=== PATIENT | male | born 1930 | race Caucasian/White ===

== ENCOUNTER 2021-09-24 12:43 | Inpatient (IN) ==
[2021-09-24] MEDS ORDERED: MOM Conc 10 ML UD.LIQ PO PRN (23:27)
[2021-09-25] MEDS: *HR* OxyCODONE/APAP 5/325 TABLET PO PRN ×3 (00:09→16:19)
[2021-09-25] MEDS: Aspirin Enteric Coated 81 MG Tablet PO SCH ×3 (00:12→22:16)
[2021-09-25] MEDS: Apixaban 2.5 MG TABLET PO SCH ×3 (00:13→23:04)
[2021-09-25] MEDS: Ranolazine 500 MG TAB.ER.12H PO SCH ×3 (00:13→22:20)
[2021-09-25] MEDS: traZODone 50 MG TABLET PO SCH ×2 (00:13→22:20)
[2021-09-25] MEDS: amLODIPine 5 MG TABLET PO SCH ×2 (00:13→22:20)
[2021-09-25 04:44] LABS: Basophils % 0.4 %; Eosinophils # 0.2 K/mcL (0.0-0.6); Eosinophils % 3.8 %; Hematocrit 22.1 % (37.5-50.1); Immature Granulocytes % 2.1 % (0-4); Lymphocytes # 0.6 K/mcL (0.6-4.6); Lymphocytes % 13.1 %; Mean Corpuscular HGB Conc 31.7 g/dL (31.6-35.5); Mean Corpuscular Volume 91.7 fL (83.0-100.0); Mean Platelet Volume 10.7 fL (9.4-12.4); Monocytes # 0.7 K/mcL (0.0-1.3); Monocytes % 14.6 %; Neutrophils # 3.1 K/mcL (1.6-8.9); Nucleated Red Blood Cells 0.6 /100 WBC (0); Platelet Count 228 K/mcL (140-400); Red Blood Count 2.41 M/mcL (4.19-5.50); Red Cell Distribution Width 17.2 % (11.5-14.5); White Blood Count 4.7 K/mcL (4.3-11.1)
[2021-09-25 04:57] LABS: BUN/Creatinine Ratio 31 (6-26); Blood Urea Nitrogen 31 mg/dL (8-23); Calcium 9.2 mg/dL (8.6-10.3); Carbon Dioxide 25 mEq/L (23-29); Chloride 109 mEq/L (98-107); Glucose 139 mg/dL (70-105); Osmolality,Calculated 299 (280-300); Sodium 140 mEq/L (136-145); eGFR For African Americans > 60 (> 60); eGFR For Non-African Americans > 60 (> 60)
[2021-09-25] MEDS: Multivit/Ca/Min/Fe/FA 1 TAB TABLET PO SCH (08:52)
[2021-09-25] MEDS: *HR* Pioglitazone 15 MG TABLET PO SCH (08:52)
[2021-09-25] MEDS: carvediloL 6.25 MG TABLET PO SCH ×2 (08:52→16:19)
[2021-09-25] MEDS: Finasteride 5 MG TABLET PO SCH (08:53)
[2021-09-25] MEDS: Ascorbic Acid 500 MG TABLET PO SCH ×2 (08:53→16:19)
[2021-09-25] MEDS ORDERED: D5% in Water 1,000 ML IVC PRN (12:03)
[2021-09-25] MEDS ORDERED: Dextrose Gel 15 GM/37.5 ML TUBE PO PRN ×2 (12:03)
[2021-09-25] MEDS ORDERED: *HR* Dextrose 50 % in Water (Syg) 50 ML SYRINGE IVP PRN (12:03)
[2021-09-25] MEDS: Insulin LISPRO 300 UNITS/3 ML VIAL SUBQ SCH ×2 (17:04→21:23)
[2021-09-25] MEDS ORDERED: 0.9 % Sodium Chloride 250 ML ONE (21:32)
[2021-09-26] MEDS: *HR* OxyCODONE/APAP 5/325 TABLET PO PRN ×2 (01:12→13:30)
[2021-09-26 06:01] LABS: Hemoglobin 8.2 g/dL (12.9-16.9)
[2021-09-26 08:05] LABS: Iron 36 mcg/dL (65-175)
[2021-09-26] MEDS: Insulin LISPRO 300 UNITS/3 ML VIAL SUBQ SCH ×4 (08:43→22:29)
[2021-09-26] MEDS: Aspirin Enteric Coated 81 MG Tablet PO SCH ×2 (08:44→22:34)
[2021-09-26] MEDS: Ascorbic Acid 500 MG TABLET PO SCH ×2 (08:44→17:56)
[2021-09-26] MEDS: Apixaban 2.5 MG TABLET PO SCH ×2 (08:44→22:34)
[2021-09-26] MEDS: Ranolazine 500 MG TAB.ER.12H PO SCH ×2 (08:44→22:35)
[2021-09-26] MEDS: carvediloL 6.25 MG TABLET PO SCH ×2 (08:44→17:55)
[2021-09-26] MEDS: Multivit/Ca/Min/Fe/FA 1 TAB TABLET PO SCH (08:45)
[2021-09-26] MEDS: Finasteride 5 MG TABLET PO SCH (08:45)
[2021-09-26] MEDS: *HR* Pioglitazone 15 MG TABLET PO SCH (08:45)
[2021-09-26 11:28] LABS: Bilirubin,Urine Negative (Negative); Blood,Urine Negative (Negative); Clarity,Urine Clear (Clear); Color,Urine Yellow (Yellow); Glucose,Urine (UA) Normal (Normal); Ketones,Urine Negative (Negative); Leukocyte Esterase,Urine Negative (Negative); Nitrite,Urine Negative (Negative); Protein,Urine Negative (Neg-Trace); Specific Gravity,Urine 1.015 (1.010-1.025); Urobilinogen,Urine Normal (Normal)
[2021-09-26] MEDS: traZODone 50 MG TABLET PO SCH (22:34)
[2021-09-26] MEDS: amLODIPine 5 MG TABLET PO SCH (22:35)
[2021-09-27] MEDS: Insulin LISPRO 300 UNITS/3 ML VIAL SUBQ SCH ×4 (08:33→20:40)
[2021-09-27] MEDS: carvediloL 6.25 MG TABLET PO SCH ×2 (08:34→17:31)
[2021-09-27] MEDS: Multivit/Ca/Min/Fe/FA 1 TAB TABLET PO SCH (08:34)
[2021-09-27] MEDS: Ascorbic Acid 500 MG TABLET PO SCH ×2 (08:34→17:31)
[2021-09-27] MEDS: Ranolazine 500 MG TAB.ER.12H PO SCH ×2 (08:34→20:39)
[2021-09-27] MEDS: Apixaban 2.5 MG TABLET PO SCH ×2 (08:34→20:39)
[2021-09-27] MEDS: Aspirin Enteric Coated 81 MG Tablet PO SCH ×2 (08:34→20:39)
[2021-09-27] MEDS: *HR* Pioglitazone 15 MG TABLET PO SCH (08:35)
[2021-09-27] MEDS: Finasteride 5 MG TABLET PO SCH (08:35)
[2021-09-27] MEDS: *HR* OxyCODONE/APAP 5/325 TABLET PO PRN ×2 (08:38→20:39)
[2021-09-27] MEDS: amLODIPine 5 MG TABLET PO SCH (20:39)
[2021-09-27] MEDS: traZODone 50 MG TABLET PO SCH (20:40)
[2021-09-28 06:08] LABS: Hematocrit 25.3 % (37.5-50.1); Hemoglobin 7.9 g/dL (12.9-16.9); Mean Corpuscular HGB Conc 31.2 g/dL (31.6-35.5); Mean Corpuscular Hemoglobin 28.7 pg (28.0-33.3); Mean Platelet Volume 10.1 fL (9.4-12.4); Platelet Count 258 K/mcL (140-400); Red Blood Count 2.75 M/mcL (4.19-5.50); Red Cell Distribution Width 17.3 % (11.5-14.5); White Blood Count 4.1 K/mcL (4.3-11.1)
[2021-09-28 06:26] LABS: Alanine Aminotransferase 13 Units/L (7-52); Albumin 2.8 g/dL (3.5-5.7); Alkaline Phosphatase 93 Units/L (34-104); Aspartate Amino Transferase 35 Units/L (13-39); BUN/Creatinine Ratio 23 (6-26); Bilirubin,Total 0.5 mg/dL (0.3-1.0); Blood Urea Nitrogen 23 mg/dL (8-23); Carbon Dioxide 26 mEq/L (23-29); Chloride 105 mEq/L (98-107); Globulin 2.7 g/dL (2.4-3.5); Glucose 162 mg/dL (70-105); Magnesium 1.6 mg/dL (1.6-2.6); Osmolality,Calculated 293 (280-300); Potassium 3.7 mEq/L (3.5-5.1); Sodium 138 mEq/L (136-145); Total Protein 5.5 g/dL (6.4-8.9); eGFR For African Americans > 60 (> 60); eGFR For Non-African Americans > 60 (> 60)
[2021-09-28] MEDS: *HR* Pioglitazone 15 MG TABLET PO SCH (08:12)
[2021-09-28] MEDS: Aspirin Enteric Coated 81 MG Tablet PO SCH ×2 (08:12→21:01)
[2021-09-28] MEDS: Multivit/Ca/Min/Fe/FA 1 TAB TABLET PO SCH (08:12)
[2021-09-28] MEDS: Ascorbic Acid 500 MG TABLET PO SCH ×2 (08:12→16:51)
[2021-09-28] MEDS: carvediloL 6.25 MG TABLET PO SCH ×2 (08:12→16:51)
[2021-09-28] MEDS: Apixaban 2.5 MG TABLET PO SCH ×2 (08:13→21:00)
[2021-09-28] MEDS: Ranolazine 500 MG TAB.ER.12H PO SCH ×2 (08:13→21:00)
[2021-09-28] MEDS: Finasteride 5 MG TABLET PO SCH (08:13)
[2021-09-28] MEDS: Insulin LISPRO 300 UNITS/3 ML VIAL SUBQ SCH ×4 (08:13→21:01)
[2021-09-28] MEDS: *HR* OxyCODONE/APAP 5/325 TABLET PO PRN ×2 (08:13→13:07)
[2021-09-28] MEDS: amLODIPine 5 MG TABLET PO SCH (21:00)
[2021-09-28] MEDS: traZODone 50 MG TABLET PO SCH (21:01)
[2021-09-29] MEDS: Ascorbic Acid 500 MG TABLET PO SCH ×2 (08:32→16:46)
[2021-09-29] MEDS: Aspirin Enteric Coated 81 MG Tablet PO SCH ×2 (08:32→19:53)
[2021-09-29] MEDS: Ranolazine 500 MG TAB.ER.12H PO SCH ×2 (08:32→19:53)
[2021-09-29] MEDS: carvediloL 6.25 MG TABLET PO SCH ×2 (08:32→16:45)
[2021-09-29] MEDS: *HR* Pioglitazone 15 MG TABLET PO SCH (08:32)
[2021-09-29] MEDS: Apixaban 2.5 MG TABLET PO SCH ×2 (08:32→19:53)
[2021-09-29] MEDS: Multivit/Ca/Min/Fe/FA 1 TAB TABLET PO SCH (08:32)
[2021-09-29] MEDS: Finasteride 5 MG TABLET PO SCH (08:33)
[2021-09-29] MEDS: *HR* OxyCODONE/APAP 5/325 TABLET PO PRN ×2 (08:38→19:53)
[2021-09-29] MEDS: Insulin LISPRO 300 UNITS/3 ML VIAL SUBQ SCH ×4 (08:43→19:54)
[2021-09-29] MEDS: amLODIPine 5 MG TABLET PO SCH (19:53)
[2021-09-29] MEDS: traZODone 50 MG TABLET PO SCH (19:53)
[2021-09-30] MEDS: Ascorbic Acid 500 MG TABLET PO SCH ×2 (08:34→17:09)
[2021-09-30] MEDS: Multivit/Ca/Min/Fe/FA 1 TAB TABLET PO SCH (08:34)
[2021-09-30] MEDS: Apixaban 2.5 MG TABLET PO SCH ×2 (08:34→20:15)
[2021-09-30] MEDS: Finasteride 5 MG TABLET PO SCH (08:34)
[2021-09-30] MEDS: *HR* Pioglitazone 15 MG TABLET PO SCH (08:34)
[2021-09-30] MEDS: Aspirin Enteric Coated 81 MG Tablet PO SCH ×2 (08:34→20:14)
[2021-09-30] MEDS: Insulin LISPRO 300 UNITS/3 ML VIAL SUBQ SCH ×4 (08:35→20:15)
[2021-09-30] MEDS: *HR* OxyCODONE/APAP 5/325 TABLET PO PRN ×3 (08:35→20:15)
[2021-09-30] MEDS: carvediloL 6.25 MG TABLET PO SCH ×2 (08:35→17:08)
[2021-09-30] MEDS: Ranolazine 500 MG TAB.ER.12H PO SCH ×2 (08:35→20:15)
[2021-09-30 09:57] LABS: Basophils % 0.5 %; Eosinophils # 0.2 K/mcL (0.0-0.6); Eosinophils % 3.7 %; Hematocrit 27.2 % (37.5-50.1); Hemoglobin 8.4 g/dL (12.9-16.9); Immature Granulocytes % 3.2 % (0-4); Lymphocytes # 0.6 K/mcL (0.6-4.6); Lymphocytes % 9.7 %; Mean Corpuscular HGB Conc 30.9 g/dL (31.6-35.5); Mean Corpuscular Hemoglobin 28.8 pg (28.0-33.3); Mean Corpuscular Volume 93.2 fL (83.0-100.0); Mean Platelet Volume 9.6 fL (9.4-12.4); Monocytes # 0.6 K/mcL (0.0-1.3); Monocytes % 9.9 %; Neutrophils # 4.1 K/mcL (1.6-8.9); Platelet Count 311 K/mcL (140-400); Red Blood Count 2.92 M/mcL (4.19-5.50); Red Cell Distribution Width 17.6 % (11.5-14.5); White Blood Count 5.7 K/mcL (4.3-11.1)
[2021-09-30 09:57] LABS: % Iron Saturation 10 % (20-55)
[2021-09-30 10:36] LABS: BUN/Creatinine Ratio 20 (6-26); Blood Urea Nitrogen 22 mg/dL (8-23); Calcium 9.3 mg/dL (8.6-10.3); Carbon Dioxide 25 mEq/L (23-29); Chloride 107 mEq/L (98-107); Glucose 206 mg/dL (70-105); Osmolality,Calculated 297 (280-300); Sodium 139 mEq/L (136-145); eGFR For African Americans > 60 (> 60); eGFR For Non-African Americans > 60 (> 60)
[2021-09-30 11:18] LABS: Transferrin 255 mg/dL (200-400)
[2021-09-30] MEDS: amLODIPine 5 MG TABLET PO SCH (20:15)
[2021-09-30] MEDS: traZODone 50 MG TABLET PO SCH (20:15)
[2021-10-01] MEDS: Finasteride 5 MG TABLET PO SCH (08:26)
[2021-10-01] MEDS: Ranolazine 500 MG TAB.ER.12H PO SCH ×2 (08:27→21:38)
[2021-10-01] MEDS: Ascorbic Acid 500 MG TABLET PO SCH ×2 (08:27→17:03)
[2021-10-01] MEDS: Aspirin Enteric Coated 81 MG Tablet PO SCH ×2 (08:27→21:40)
[2021-10-01] MEDS: Apixaban 2.5 MG TABLET PO SCH ×2 (08:27→21:39)
[2021-10-01] MEDS: *HR* Pioglitazone 15 MG TABLET PO SCH (08:28)
[2021-10-01] MEDS: carvediloL 6.25 MG TABLET PO SCH ×2 (08:28→17:02)
[2021-10-01] MEDS: Multivit/Ca/Min/Fe/FA 1 TAB TABLET PO SCH (08:28)
[2021-10-01] MEDS: Insulin LISPRO 300 UNITS/3 ML VIAL SUBQ SCH ×4 (08:29→21:40)
[2021-10-01] MEDS: *HR* OxyCODONE/APAP 5/325 TABLET PO PRN ×2 (13:18→21:39)
[2021-10-01] MEDS: amLODIPine 5 MG TABLET PO SCH (21:39)
[2021-10-01] MEDS: traZODone 50 MG TABLET PO SCH (21:39)
[2021-10-02] MEDS: Insulin LISPRO 300 UNITS/3 ML VIAL SUBQ SCH ×4 (08:11→21:51)
[2021-10-02] MEDS: Ranolazine 500 MG TAB.ER.12H PO SCH ×2 (08:15→21:50)
[2021-10-02] MEDS: Aspirin Enteric Coated 81 MG Tablet PO SCH ×2 (08:15→21:51)
[2021-10-02] MEDS: Apixaban 2.5 MG TABLET PO SCH ×2 (08:15→21:51)
[2021-10-02] MEDS: *HR* Pioglitazone 15 MG TABLET PO SCH (08:15)
[2021-10-02] MEDS: Ascorbic Acid 500 MG TABLET PO SCH ×2 (08:15→16:38)
[2021-10-02] MEDS: carvediloL 6.25 MG TABLET PO SCH ×2 (08:15→16:38)
[2021-10-02] MEDS: Multivit/Ca/Min/Fe/FA 1 TAB TABLET PO SCH (08:15)
[2021-10-02] MEDS: Finasteride 5 MG TABLET PO SCH (08:15)
[2021-10-02] MEDS: *HR* OxyCODONE/APAP 5/325 TABLET PO PRN ×2 (08:16→14:31)
[2021-10-02] MEDS: traZODone 50 MG TABLET PO SCH (21:50)
[2021-10-02] MEDS: amLODIPine 5 MG TABLET PO SCH (21:51)
[2021-10-03] MEDS: Ascorbic Acid 500 MG TABLET PO SCH ×2 (09:06→16:52)
[2021-10-03] MEDS: *HR* OxyCODONE/APAP 5/325 TABLET PO PRN ×2 (09:06→22:13)
[2021-10-03] MEDS: carvediloL 6.25 MG TABLET PO SCH ×2 (09:06→16:52)
[2021-10-03] MEDS: Aspirin Enteric Coated 81 MG Tablet PO SCH ×2 (09:06→22:12)
[2021-10-03] MEDS: Ranolazine 500 MG TAB.ER.12H PO SCH ×2 (09:07→22:13)
[2021-10-03] MEDS: Multivit/Ca/Min/Fe/FA 1 TAB TABLET PO SCH (09:07)
[2021-10-03] MEDS: Finasteride 5 MG TABLET PO SCH (09:07)
[2021-10-03] MEDS: Apixaban 2.5 MG TABLET PO SCH ×2 (09:07→22:13)
[2021-10-03] MEDS: Insulin LISPRO 300 UNITS/3 ML VIAL SUBQ SCH ×4 (09:07→22:16)
[2021-10-03] MEDS: *HR* Pioglitazone 15 MG TABLET PO SCH (09:07)
[2021-10-03] MEDS: traZODone 50 MG TABLET PO SCH (22:12)
[2021-10-03] MEDS: amLODIPine 5 MG TABLET PO SCH (22:13)
[2021-10-04 04:48] LABS: Basophils % 0.7 %; Eosinophils # 0.1 K/mcL (0.0-0.6); Hematocrit 24.9 % (37.5-50.1); Hemoglobin 7.9 g/dL (12.9-16.9); Immature Granulocytes % 1.6 % (0-4); Lymphocytes # 0.6 K/mcL (0.6-4.6); Mean Corpuscular HGB Conc 31.7 g/dL (31.6-35.5); Mean Corpuscular Hemoglobin 29.7 pg (28.0-33.3); Mean Corpuscular Volume 93.6 fL (83.0-100.0); Mean Platelet Volume 9.6 fL (9.4-12.4); Monocytes # 0.5 K/mcL (0.0-1.3); Neutrophils # 2.9 K/mcL (1.6-8.9); Platelet Count 326 K/mcL (140-400); Red Blood Count 2.66 M/mcL (4.19-5.50); Red Cell Distribution Width 17.4 % (11.5-14.5); Segmented Neutrophils % 68.7 %; White Blood Count 4.3 K/mcL (4.3-11.1)
[2021-10-04 04:57] LABS: BUN/Creatinine Ratio 19 (6-26); Blood Urea Nitrogen 19 mg/dL (8-23); Carbon Dioxide 25 mEq/L (23-29); Chloride 105 mEq/L (98-107); Glucose 154 mg/dL (70-105); Osmolality,Calculated 287 (280-300); Potassium 3.7 mEq/L (3.5-5.1); Sodium 136 mEq/L (136-145); eGFR For African Americans > 60 (> 60); eGFR For Non-African Americans > 60 (> 60)
[2021-10-04] MEDS: *HR* OxyCODONE/APAP 5/325 TABLET PO PRN ×2 (05:25→20:45)
[2021-10-04] MEDS: Insulin LISPRO 300 UNITS/3 ML VIAL SUBQ SCH ×4 (07:49→20:46)
[2021-10-04] MEDS: Aspirin Enteric Coated 81 MG Tablet PO SCH ×2 (08:38→20:44)
[2021-10-04] MEDS: Finasteride 5 MG TABLET PO SCH (08:38)
[2021-10-04] MEDS: Ascorbic Acid 500 MG TABLET PO SCH ×2 (08:39→17:21)
[2021-10-04] MEDS: carvediloL 6.25 MG TABLET PO SCH ×2 (08:39→17:21)
[2021-10-04] MEDS: Multivit/Ca/Min/Fe/FA 1 TAB TABLET PO SCH (08:39)
[2021-10-04] MEDS: Ranolazine 500 MG TAB.ER.12H PO SCH ×2 (08:40→20:44)
[2021-10-04] MEDS: *HR* Pioglitazone 15 MG TABLET PO SCH (08:40)
[2021-10-04] MEDS: Apixaban 2.5 MG TABLET PO SCH ×2 (08:40→20:44)
[2021-10-04] MEDS: amLODIPine 5 MG TABLET PO SCH (20:44)
[2021-10-04] MEDS: traZODone 50 MG TABLET PO SCH (20:44)
[2021-10-05] MEDS: Multivit/Ca/Min/Fe/FA 1 TAB TABLET PO SCH (08:14)
[2021-10-05] MEDS: Insulin LISPRO 300 UNITS/3 ML VIAL SUBQ SCH ×4 (08:14→21:59)
[2021-10-05] MEDS: *HR* Pioglitazone 15 MG TABLET PO SCH (08:14)
[2021-10-05] MEDS: Aspirin Enteric Coated 81 MG Tablet PO SCH ×2 (08:14→22:21)
[2021-10-05] MEDS: carvediloL 6.25 MG TABLET PO SCH ×2 (08:14→17:43)
[2021-10-05] MEDS: Ascorbic Acid 500 MG TABLET PO SCH ×2 (08:15→17:42)
[2021-10-05] MEDS: Finasteride 5 MG TABLET PO SCH (08:15)
[2021-10-05] MEDS: Ranolazine 500 MG TAB.ER.12H PO SCH ×2 (08:15→22:20)
[2021-10-05] MEDS: Apixaban 2.5 MG TABLET PO SCH ×2 (08:15→22:22)
[2021-10-05] MEDS: *HR* OxyCODONE/APAP 5/325 TABLET PO PRN (22:20)
[2021-10-05] MEDS: amLODIPine 5 MG TABLET PO SCH (22:21)
[2021-10-05] MEDS: traZODone 50 MG TABLET PO SCH (22:21)
[2021-10-06] MEDS: *HR* OxyCODONE/APAP 5/325 TABLET PO PRN ×3 (05:09→23:10)
[2021-10-06] MEDS: Insulin LISPRO 300 UNITS/3 ML VIAL SUBQ SCH ×4 (09:11→23:08)
[2021-10-06] MEDS: carvediloL 6.25 MG TABLET PO SCH ×2 (09:55→17:13)
[2021-10-06] MEDS: Ranolazine 500 MG TAB.ER.12H PO SCH ×2 (09:55→23:09)
[2021-10-06] MEDS: Multivit/Ca/Min/Fe/FA 1 TAB TABLET PO SCH (09:55)
[2021-10-06] MEDS: Apixaban 2.5 MG TABLET PO SCH ×2 (09:55→23:09)
[2021-10-06] MEDS: *HR* Pioglitazone 15 MG TABLET PO SCH (09:56)
[2021-10-06] MEDS: Aspirin Enteric Coated 81 MG Tablet PO SCH ×2 (09:56→23:08)
[2021-10-06] MEDS: Ascorbic Acid 500 MG TABLET PO SCH ×2 (09:56→17:13)
[2021-10-06] MEDS: Finasteride 5 MG TABLET PO SCH (09:56)
[2021-10-06] MEDS: amLODIPine 5 MG TABLET PO SCH (23:09)
[2021-10-06] MEDS: traZODone 50 MG TABLET PO SCH (23:09)
[2021-10-07] MEDS: *HR* OxyCODONE/APAP 5/325 TABLET PO PRN ×3 (05:03→22:40)
[2021-10-07 05:44] LABS: Basophils % 0.8 %; Eosinophils # 0.2 K/mcL (0.0-0.6); Eosinophils % 4.8 %; Hematocrit 24.7 % (37.5-50.1); Hemoglobin 7.8 g/dL (12.9-16.9); Immature Granulocytes % 0.8 % (0-4); Lymphocytes # 0.8 K/mcL (0.6-4.6); Lymphocytes % 20.7 %; Mean Corpuscular HGB Conc 31.6 g/dL (31.6-35.5); Mean Platelet Volume 10.4 fL (9.4-12.4); Monocytes # 0.5 K/mcL (0.0-1.3); Monocytes % 14.1 %; Neutrophils # 2.2 K/mcL (1.6-8.9); Platelet Count 245 K/mcL (140-400); Segmented Neutrophils % 58.8 %; White Blood Count 3.8 K/mcL (4.3-11.1)
[2021-10-07 05:59] LABS: BUN/Creatinine Ratio 16 (6-26); Blood Urea Nitrogen 15 mg/dL (8-23); Calcium 8.9 mg/dL (8.6-10.3); Carbon Dioxide 26 mEq/L (23-29); Chloride 106 mEq/L (98-107); Glucose 122 mg/dL (70-105); Osmolality,Calculated 286 (280-300); Potassium 4.1 mEq/L (3.5-5.1); Sodium 137 mEq/L (136-145); eGFR For African Americans > 60 (> 60); eGFR For Non-African Americans > 60 (> 60)
[2021-10-07] MEDS: Insulin LISPRO 300 UNITS/3 ML VIAL SUBQ SCH ×4 (08:00→22:25)
[2021-10-07] MEDS: Ascorbic Acid 500 MG TABLET PO SCH ×2 (08:20→16:58)
[2021-10-07] MEDS: Aspirin Enteric Coated 81 MG Tablet PO SCH ×2 (08:20→22:39)
[2021-10-07] MEDS: Multivit/Ca/Min/Fe/FA 1 TAB TABLET PO SCH (08:20)
[2021-10-07] MEDS: *HR* Pioglitazone 15 MG TABLET PO SCH (08:20)
[2021-10-07] MEDS: Ranolazine 500 MG TAB.ER.12H PO SCH ×2 (08:20→22:39)
[2021-10-07] MEDS: carvediloL 6.25 MG TABLET PO SCH ×2 (08:20→16:58)
[2021-10-07] MEDS: Finasteride 5 MG TABLET PO SCH (08:20)
[2021-10-07] MEDS: Apixaban 2.5 MG TABLET PO SCH ×2 (08:21→22:40)
[2021-10-07] MEDS: amLODIPine 5 MG TABLET PO SCH (22:40)
[2021-10-07] MEDS: traZODone 50 MG TABLET PO SCH (22:40)
[2021-10-08] MEDS: *HR* OxyCODONE/APAP 5/325 TABLET PO PRN ×2 (06:11→20:39)
[2021-10-08] MEDS: Ranolazine 500 MG TAB.ER.12H PO SCH ×2 (08:19→20:39)
[2021-10-08] MEDS: Apixaban 2.5 MG TABLET PO SCH ×2 (08:19→20:38)
[2021-10-08] MEDS: Finasteride 5 MG TABLET PO SCH (08:19)
[2021-10-08] MEDS: Insulin LISPRO 300 UNITS/3 ML VIAL SUBQ SCH ×4 (08:19→20:30)
[2021-10-08] MEDS: Multivit/Ca/Min/Fe/FA 1 TAB TABLET PO SCH (08:20)
[2021-10-08] MEDS: Ascorbic Acid 500 MG TABLET PO SCH ×2 (08:20→17:10)
[2021-10-08] MEDS: Aspirin Enteric Coated 81 MG Tablet PO SCH ×2 (08:20→20:38)
[2021-10-08] MEDS: *HR* Pioglitazone 15 MG TABLET PO SCH (08:20)
[2021-10-08] MEDS: carvediloL 6.25 MG TABLET PO SCH ×2 (08:20→17:10)
[2021-10-08] MEDS: traZODone 50 MG TABLET PO SCH (20:38)
[2021-10-08] MEDS: amLODIPine 5 MG TABLET PO SCH (20:38)
[2021-10-09] MEDS: *HR* OxyCODONE/APAP 5/325 TABLET PO PRN (04:13)
[2021-10-09 06:21] LABS: Hematocrit 25.1 % (37.5-50.1); Hemoglobin 7.8 g/dL (12.9-16.9); Mean Corpuscular HGB Conc 31.1 g/dL (31.6-35.5); Mean Corpuscular Hemoglobin 29.5 pg (28.0-33.3); Mean Corpuscular Volume 95.1 fL (83.0-100.0); Platelet Count 273 K/mcL (140-400); Red Blood Count 2.64 M/mcL (4.19-5.50); Red Cell Distribution Width 18.1 % (11.5-14.5); White Blood Count 3.3 K/mcL (4.3-11.1)
[2021-10-09 06:43] LABS: Alanine Aminotransferase 12 Units/L (7-52); Albumin 2.8 g/dL (3.5-5.7); Alkaline Phosphatase 113 Units/L (34-104); Aspartate Amino Transferase 25 Units/L (13-39); BUN/Creatinine Ratio 14 (6-26); Bilirubin,Total 0.4 mg/dL (0.3-1.0); Blood Urea Nitrogen 15 mg/dL (8-23); Carbon Dioxide 26 mEq/L (23-29); Chloride 105 mEq/L (98-107); Globulin 2.7 g/dL (2.4-3.5); Glucose 104 mg/dL (70-105); Magnesium 1.6 mg/dL (1.6-2.6); Osmolality,Calculated 287 (280-300); Potassium 3.8 mEq/L (3.5-5.1); Sodium 138 mEq/L (136-145); Total Protein 5.5 g/dL (6.4-8.9); eGFR For African Americans > 60 (> 60); eGFR For Non-African Americans > 60 (> 60)
[2021-10-09] MEDS: Ascorbic Acid 500 MG TABLET PO SCH ×2 (08:29→16:17)
[2021-10-09] MEDS: Aspirin Enteric Coated 81 MG Tablet PO SCH ×2 (08:29→20:59)
[2021-10-09] MEDS: Apixaban 2.5 MG TABLET PO SCH ×2 (08:29→20:59)
[2021-10-09] MEDS: Multivit/Ca/Min/Fe/FA 1 TAB TABLET PO SCH (08:29)
[2021-10-09] MEDS: *HR* Pioglitazone 15 MG TABLET PO SCH (08:29)
[2021-10-09] MEDS: Ranolazine 500 MG TAB.ER.12H PO SCH ×2 (08:29→20:59)
[2021-10-09] MEDS: carvediloL 6.25 MG TABLET PO SCH ×2 (08:30→16:16)
[2021-10-09] MEDS: Finasteride 5 MG TABLET PO SCH (08:30)
[2021-10-09] MEDS: Insulin LISPRO 300 UNITS/3 ML VIAL SUBQ SCH ×4 (08:32→21:00)
[2021-10-09] MEDS: Furosemide 20 MG TABLET PO SCH (16:16)
[2021-10-09] MEDS: levoFLOXacin 750 MG TABLET PO SCH (16:57)
[2021-10-09 20:37] LABS: Adenovirus Not Detected (Not Detect); Bordetella Pertussis Not Detected (Not Detect); Chlamydophila pneumoniae Not Detected (Not Detect); Coronavirus 229E Not Detected (Not Detect); Coronavirus HKU1 Not Detected (Not Detect); Coronavirus NL63 Not Detected (Not Detect); Coronavirus OC43 Not Detected (Not Detect); Human Metapneumovirus Not Detected (Not Detect); Human Rhinovirus/Enterovirus Not Detected (Not Detect); Influenza A Subtype 2009 H1 Not Detected (Not Detect); Influenza B Not Detected (Not Detect); Mycoplasma pneumoniae Not Detected (Not Detect); Parainfluenza Virus 1 Not Detected (Not Detect); Parainfluenza Virus 2 Not Detected (Not Detect); Parainfluenza Virus 3 Not Detected (Not Detect); Parainfluenza Virus 4 Not Detected (Not Detect); Respiratory Syncytial Virus Not Detected (Not Detect); SARS-CoV-2 Not Detected (Not Detect)
[2021-10-09] MEDS: amLODIPine 5 MG TABLET PO SCH (20:59)
[2021-10-09] MEDS: traZODone 50 MG TABLET PO SCH (20:59)
[2021-10-10] MEDS: *HR* OxyCODONE/APAP 5/325 TABLET PO PRN ×3 (05:28→22:00)
[2021-10-10 06:01] LABS: Basophils % 0.9 %; Eosinophils # 0.1 K/mcL (0.0-0.6); Eosinophils % 3.7 %; Hematocrit 24.4 % (37.5-50.1); Hemoglobin 7.7 g/dL (12.9-16.9); Immature Granulocytes % 1.1 % (0-4); Lymphocytes # 0.6 K/mcL (0.6-4.6); Lymphocytes % 16.2 %; Mean Corpuscular HGB Conc 31.6 g/dL (31.6-35.5); Mean Corpuscular Hemoglobin 29.7 pg (28.0-33.3); Mean Corpuscular Volume 94.2 fL (83.0-100.0); Mean Platelet Volume 9.6 fL (9.4-12.4); Monocytes # 0.6 K/mcL (0.0-1.3); Monocytes % 17.9 %; Neutrophils # 2.1 K/mcL (1.6-8.9); Platelet Count 258 K/mcL (140-400); Red Blood Count 2.59 M/mcL (4.19-5.50); Red Cell Distribution Width 17.9 % (11.5-14.5); Segmented Neutrophils % 60.2 %; White Blood Count 3.5 K/mcL (4.3-11.1)
[2021-10-10 06:22] LABS: BUN/Creatinine Ratio 16 (6-26); Blood Urea Nitrogen 16 mg/dL (8-23); Calcium 8.9 mg/dL (8.6-10.3); Carbon Dioxide 26 mEq/L (23-29); Chloride 102 mEq/L (98-107); Glucose 106 mg/dL (70-105); Osmolality,Calculated 280 (280-300); Potassium 3.7 mEq/L (3.5-5.1); Sodium 134 mEq/L (136-145); eGFR For African Americans > 60 (> 60); eGFR For Non-African Americans > 60 (> 60)
[2021-10-10] MEDS: *HR* Pioglitazone 15 MG TABLET PO SCH (08:04)
[2021-10-10] MEDS: Aspirin Enteric Coated 81 MG Tablet PO SCH ×2 (08:05→20:48)
[2021-10-10] MEDS: Ascorbic Acid 500 MG TABLET PO SCH ×2 (08:05→17:37)
[2021-10-10] MEDS: Furosemide 20 MG TABLET PO SCH (08:05)
[2021-10-10] MEDS: Ranolazine 500 MG TAB.ER.12H PO SCH ×2 (08:05→20:48)
[2021-10-10] MEDS: carvediloL 6.25 MG TABLET PO SCH ×2 (08:05→17:37)
[2021-10-10] MEDS: Apixaban 2.5 MG TABLET PO SCH ×2 (08:05→20:49)
[2021-10-10] MEDS: Multivit/Ca/Min/Fe/FA 1 TAB TABLET PO SCH (08:05)
[2021-10-10] MEDS: Finasteride 5 MG TABLET PO SCH (08:05)
[2021-10-10] MEDS: levoFLOXacin 750 MG TABLET PO SCH (08:06)
[2021-10-10] MEDS: Insulin LISPRO 300 UNITS/3 ML VIAL SUBQ SCH ×4 (13:56→20:49)
[2021-10-10] MEDS: traZODone 50 MG TABLET PO SCH (20:48)
[2021-10-10] MEDS: amLODIPine 5 MG TABLET PO SCH (20:49)
[2021-10-11] MEDS: Aspirin Enteric Coated 81 MG Tablet PO SCH ×2 (08:40→20:58)
[2021-10-11] MEDS: Ranolazine 500 MG TAB.ER.12H PO SCH ×2 (08:40→20:57)
[2021-10-11] MEDS: levoFLOXacin 750 MG TABLET PO SCH (08:40)
[2021-10-11] MEDS: Ascorbic Acid 500 MG TABLET PO SCH ×2 (08:40→17:25)
[2021-10-11] MEDS: *HR* Pioglitazone 15 MG TABLET PO SCH (08:41)
[2021-10-11] MEDS: Insulin LISPRO 300 UNITS/3 ML VIAL SUBQ SCH ×4 (08:41→20:58)
[2021-10-11] MEDS: Apixaban 2.5 MG TABLET PO SCH ×2 (08:41→20:57)
[2021-10-11] MEDS: Finasteride 5 MG TABLET PO SCH (08:41)
[2021-10-11] MEDS: carvediloL 6.25 MG TABLET PO SCH ×2 (08:41→17:25)
[2021-10-11] MEDS: Multivit/Ca/Min/Fe/FA 1 TAB TABLET PO SCH (08:41)
[2021-10-11] MEDS: *HR* OxyCODONE/APAP 5/325 TABLET PO PRN ×3 (15:04→23:28)
[2021-10-11] MEDS: traZODone 50 MG TABLET PO SCH (20:57)
[2021-10-11] MEDS: amLODIPine 5 MG TABLET PO SCH (20:58)
[2021-10-12] MEDS: levoFLOXacin 750 MG TABLET PO SCH (08:46)
[2021-10-12] MEDS: Ascorbic Acid 500 MG TABLET PO SCH ×2 (08:46→18:16)
[2021-10-12] MEDS: Multivit/Ca/Min/Fe/FA 1 TAB TABLET PO SCH (08:46)
[2021-10-12] MEDS: Apixaban 2.5 MG TABLET PO SCH ×2 (08:46→21:37)
[2021-10-12] MEDS: Aspirin Enteric Coated 81 MG Tablet PO SCH ×2 (08:47→21:37)
[2021-10-12] MEDS: *HR* OxyCODONE/APAP 5/325 TABLET PO PRN ×2 (08:47→18:16)
[2021-10-12] MEDS: Finasteride 5 MG TABLET PO SCH (08:47)
[2021-10-12] MEDS: Ranolazine 500 MG TAB.ER.12H PO SCH ×2 (08:47→21:36)
[2021-10-12] MEDS: carvediloL 6.25 MG TABLET PO SCH ×2 (08:47→18:16)
[2021-10-12] MEDS: *HR* Pioglitazone 15 MG TABLET PO SCH (08:47)
[2021-10-12] MEDS: Insulin LISPRO 300 UNITS/3 ML VIAL SUBQ SCH ×4 (08:48→21:37)
[2021-10-12] MEDS: traZODone 50 MG TABLET PO SCH (21:36)
[2021-10-12] MEDS: amLODIPine 5 MG TABLET PO SCH (21:37)
[2021-10-13] MEDS: *HR* OxyCODONE/APAP 5/325 TABLET PO PRN ×2 (05:59→20:51)
[2021-10-13] MEDS: Multivit/Ca/Min/Fe/FA 1 TAB TABLET PO SCH (09:20)
[2021-10-13] MEDS: carvediloL 6.25 MG TABLET PO SCH ×2 (09:21→16:47)
[2021-10-13] MEDS: Apixaban 2.5 MG TABLET PO SCH ×2 (09:21→20:51)
[2021-10-13] MEDS: Ranolazine 500 MG TAB.ER.12H PO SCH ×2 (09:21→20:52)
[2021-10-13] MEDS: *HR* Pioglitazone 15 MG TABLET PO SCH (09:21)
[2021-10-13] MEDS: levoFLOXacin 750 MG TABLET PO SCH (09:21)
[2021-10-13] MEDS: Finasteride 5 MG TABLET PO SCH (09:21)
[2021-10-13] MEDS: Ascorbic Acid 500 MG TABLET PO SCH ×2 (09:21→16:47)
[2021-10-13] MEDS: Aspirin Enteric Coated 81 MG Tablet PO SCH ×2 (09:21→20:51)
[2021-10-13] MEDS: Insulin LISPRO 300 UNITS/3 ML VIAL SUBQ SCH ×4 (09:23→20:52)
[2021-10-13] MEDS: Furosemide 20 MG TABLET PO SCH (12:56)
[2021-10-13] MEDS: amLODIPine 5 MG TABLET PO SCH (20:51)
[2021-10-13] MEDS: traZODone 50 MG TABLET PO SCH (20:51)
[2021-10-14 05:17] LABS: Basophils % 0.5 %; Eosinophils # 0.2 K/mcL (0.0-0.6); Eosinophils % 3.9 %; Hematocrit 26.3 % (37.5-50.1); Hemoglobin 8.1 g/dL (12.9-16.9); Immature Granulocytes % 2.1 % (0-4); Lymphocytes # 0.8 K/mcL (0.6-4.6); Lymphocytes % 20.6 %; Mean Corpuscular HGB Conc 30.8 g/dL (31.6-35.5); Mean Corpuscular Hemoglobin 29.9 pg (28.0-33.3); Mean Platelet Volume 9.8 fL (9.4-12.4); Monocytes # 0.6 K/mcL (0.0-1.3); Monocytes % 16.7 %; Platelet Count 226 K/mcL (140-400); Red Blood Count 2.71 M/mcL (4.19-5.50); Red Cell Distribution Width 19.2 % (11.5-14.5); Segmented Neutrophils % 56.2 %; White Blood Count 3.8 K/mcL (4.3-11.1)
[2021-10-14 05:18] LABS: Neutrophils # 2.1 K/mcL (1.6-8.9)
[2021-10-14 05:27] LABS: BUN/Creatinine Ratio 15 (6-26); Blood Urea Nitrogen 17 mg/dL (8-23); Calcium 8.9 mg/dL (8.6-10.3); Carbon Dioxide 27 mEq/L (23-29); Chloride 106 mEq/L (98-107); Glucose 123 mg/dL (70-105); Osmolality,Calculated 293 (280-300); Potassium 3.7 mEq/L (3.5-5.1); Sodium 140 mEq/L (136-145); eGFR For African Americans > 60 (> 60); eGFR For Non-African Americans > 60 (> 60)
[2021-10-14] MEDS: Insulin LISPRO 300 UNITS/3 ML VIAL SUBQ SCH ×4 (10:21→22:53)
[2021-10-14] MEDS: Apixaban 2.5 MG TABLET PO SCH ×2 (10:23→20:22)
[2021-10-14] MEDS: Aspirin Enteric Coated 81 MG Tablet PO SCH ×2 (10:24→20:21)
[2021-10-14] MEDS: Ranolazine 500 MG TAB.ER.12H PO SCH ×2 (10:24→20:21)
[2021-10-14] MEDS: Multivit/Ca/Min/Fe/FA 1 TAB TABLET PO SCH (10:24)
[2021-10-14] MEDS: Finasteride 5 MG TABLET PO SCH (10:24)
[2021-10-14] MEDS: carvediloL 6.25 MG TABLET PO SCH ×2 (10:24→19:05)
[2021-10-14] MEDS: *HR* Pioglitazone 15 MG TABLET PO SCH (10:24)
[2021-10-14] MEDS: Furosemide 20 MG TABLET PO SCH (10:26)
[2021-10-14] MEDS: Ascorbic Acid 500 MG TABLET PO SCH ×2 (10:26→19:05)
[2021-10-14] MEDS: levoFLOXacin 750 MG TABLET PO SCH (10:26)
[2021-10-14] MEDS: *HR* OxyCODONE/APAP 5/325 TABLET PO PRN ×2 (10:36→20:25)
[2021-10-14] MEDS: traZODone 50 MG TABLET PO SCH (20:21)
[2021-10-14] MEDS: amLODIPine 5 MG TABLET PO SCH (20:22)
[2021-10-15] MEDS: Finasteride 5 MG TABLET PO SCH (08:17)
[2021-10-15] MEDS: Ascorbic Acid 500 MG TABLET PO SCH ×2 (08:17→17:41)
[2021-10-15] MEDS: Insulin LISPRO 300 UNITS/3 ML VIAL SUBQ SCH ×4 (08:17→20:02)
[2021-10-15] MEDS: Aspirin Enteric Coated 81 MG Tablet PO SCH ×2 (08:17→19:58)
[2021-10-15] MEDS: *HR* Pioglitazone 15 MG TABLET PO SCH (08:18)
[2021-10-15] MEDS: carvediloL 6.25 MG TABLET PO SCH ×2 (08:18→17:41)
[2021-10-15] MEDS: Furosemide 20 MG TABLET PO SCH (08:18)
[2021-10-15] MEDS: Ranolazine 500 MG TAB.ER.12H PO SCH ×2 (08:19→19:59)
[2021-10-15] MEDS: Apixaban 2.5 MG TABLET PO SCH ×2 (08:20→19:58)
[2021-10-15] MEDS: Multivit/Ca/Min/Fe/FA 1 TAB TABLET PO SCH (08:20)
[2021-10-15] MEDS: *HR* OxyCODONE/APAP 5/325 TABLET PO PRN ×2 (13:21→20:06)
[2021-10-15] MEDS: amLODIPine 5 MG TABLET PO SCH (19:59)
[2021-10-15] MEDS: traZODone 50 MG TABLET PO SCH (19:59)
[2021-10-16] MEDS: Ranolazine 500 MG TAB.ER.12H PO SCH ×2 (08:12→21:56)
[2021-10-16] MEDS: Ascorbic Acid 500 MG TABLET PO SCH ×2 (08:12→17:49)
[2021-10-16] MEDS: Aspirin Enteric Coated 81 MG Tablet PO SCH ×2 (08:12→21:56)
[2021-10-16] MEDS: Multivit/Ca/Min/Fe/FA 1 TAB TABLET PO SCH (08:12)
[2021-10-16] MEDS: carvediloL 6.25 MG TABLET PO SCH ×2 (08:13→17:49)
[2021-10-16] MEDS: *HR* Pioglitazone 15 MG TABLET PO SCH (08:13)
[2021-10-16] MEDS: Apixaban 2.5 MG TABLET PO SCH ×2 (08:13→21:56)
[2021-10-16] MEDS: Finasteride 5 MG TABLET PO SCH (08:13)
[2021-10-16] MEDS: *HR* OxyCODONE/APAP 5/325 TABLET PO PRN ×2 (08:13→13:36)
[2021-10-16] MEDS: Insulin LISPRO 300 UNITS/3 ML VIAL SUBQ SCH ×4 (08:14→21:00)
[2021-10-16] MEDS: amLODIPine 5 MG TABLET PO SCH (21:55)
[2021-10-16] MEDS: traZODone 50 MG TABLET PO SCH (21:56)
[2021-10-17] MEDS: Finasteride 5 MG TABLET PO SCH (07:57)
[2021-10-17] MEDS: Aspirin Enteric Coated 81 MG Tablet PO SCH ×2 (07:57→21:47)
[2021-10-17] MEDS: carvediloL 6.25 MG TABLET PO SCH ×2 (07:58→17:44)
[2021-10-17] MEDS: Apixaban 2.5 MG TABLET PO SCH ×2 (07:58→21:47)
[2021-10-17] MEDS: *HR* Pioglitazone 15 MG TABLET PO SCH (07:58)
[2021-10-17] MEDS: Multivit/Ca/Min/Fe/FA 1 TAB TABLET PO SCH (07:59)
[2021-10-17] MEDS: Insulin LISPRO 300 UNITS/3 ML VIAL SUBQ SCH ×3 (07:59→17:45)
[2021-10-17] MEDS: Ascorbic Acid 500 MG TABLET PO SCH ×2 (07:59→17:45)
[2021-10-17] MEDS: Ranolazine 500 MG TAB.ER.12H PO SCH ×2 (07:59→21:47)
[2021-10-17] MEDS: traZODone 50 MG TABLET PO SCH (21:46)
[2021-10-17] MEDS: amLODIPine 5 MG TABLET PO SCH (21:47)
[2021-10-18] MEDS: Insulin LISPRO 300 UNITS/3 ML VIAL SUBQ SCH ×4 (04:35→12:09)
[2021-10-18 08:10] VITALS: BP 108/63; PULSE 61; RESP 16; TEMP 97.7; O2SAT 95
[2021-10-18] MEDS: Apixaban 2.5 MG TABLET PO SCH (08:51)
[2021-10-18] MEDS: Aspirin Enteric Coated 81 MG Tablet PO SCH (08:51)
[2021-10-18] MEDS: Multivit/Ca/Min/Fe/FA 1 TAB TABLET PO SCH (08:51)
[2021-10-18] MEDS: *HR* Pioglitazone 15 MG TABLET PO SCH (08:51)
[2021-10-18] MEDS: *HR* OxyCODONE/APAP 5/325 TABLET PO PRN (08:51)
[2021-10-18] MEDS: carvediloL 6.25 MG TABLET PO SCH (08:52)
[2021-10-18] MEDS: Ranolazine 500 MG TAB.ER.12H PO SCH (08:52)
[2021-10-18] MEDS: Ascorbic Acid 500 MG TABLET PO SCH (08:52)
[2021-10-18] MEDS: Finasteride 5 MG TABLET PO SCH (08:52)
== END 2021-10-18 15:32 | disposition home health service (06) | DRG 535 ==
LOC: INPGRE 23:00
PROVIDERS: ADMIT Family Medicine; ATTEND Family Medicine